=== PATIENT | female | born 1975 | race Caucasian/White ===

== ENCOUNTER 2020-01-26 21:37 | Emergency (ER) | payer OTHER ==
[~2020-01-26] VITALS: Ht 170.2 cm; Wt 56.7 kg
--- NOTE | 2020-01-26 21:44 | NUR ---
Patient in room at this time
--- NOTE | 2020-01-26 21:53 | NUR ---
at bedside for assessment
[2020-01-26 22:35] LABS: BASOPHILS # (AUTO) 0.1 K/uL (0.0-8.0); BASOPHILS % (AUTO) 0.9 % (0.0-2.0); EOSINOPHILS # (AUTO) 0.3 K/uL (0.0-0.7); EOSINOPHILS % (AUTO) 4.9 % (0.0-7.0); HEMATOCRIT 38.1 % (31.2-41.9); LYMPHOCYTES # (AUTO) 2.6 K/uL (20.0-40.0); LYMPHOCYTES % (AUTO) 40.6 % (20.5-51.5); MEAN CORPUSCULAR HEMOGLOBIN 31.9 uug (24.7-32.8); MEAN CORPUSCULAR HGB CONC 34 g/dL (32.3-35.6); MEAN CORPUSCULAR VOLUME 93.5 fL (75.5-95.3); MONOCYTES # (AUTO) 0.5 K/uL (2.0-10.0); MONOCYTES % (AUTO) 7.6 % (0.0-11.0); PLATELET COUNT (AUTO) 345 K/uL (179-408); RED BLOOD CELL COUNT(AUTO) 4.07 MIL/uL (3.63-4.92); WHITE BLOOD COUNT (AUTO) 6.5 K/uL (3.8-11.8)
[2020-01-26 22:38] LABS: *BILIRUBIN,URIN NEGATIVE (NEGATIVE); *BLOOD, URINE NEGATIVE (NEGATIVE); *CLARITY,URINE CLEAR (CLEAR); *COLOR,URINE YELLOW (YELLOW); *KETONES,URINE NEGATIVE (NEGATIVE); *UROBILINOGEN,URINE 0.2 E.U./dl (NORMAL); LEUKOCYTE ESTERASE ,URINE NEGATIVE (NEGATIVE); NITRITE, URINE NEGATIVE (NEGATIVE); UGLUCOSE NEGATIVE (NEGATIVE)
--- NOTE | 2020-01-26 22:40 | NUR ---
patient taken to Radiology at this time
[2020-01-26 22:46] LABS: *URINE HCG, QUAL NEGATIVE (NEGATIVE)
[2020-01-26 23:05] LABS: POTASSIUM 4.1 mmol/L (3.5-5.1)
[2020-01-26 23:10] LABS: BILIRUBIN,DIRECT 0.2 mg/dL (0.0-0.2); BILIRUBIN,TOTAL 1.1 mg/dL (0.2-1.0); TOTAL PROTEIN, SERUM 7.2 g/dL (6.4-8.2)
--- NOTE | 2020-01-26 23:28 | NUR ---
Patient discharged to home in stable condition. Took all belongings. no signs of acute distress. Written and verbal after care instructions given. Patient verbalizes understanding of instructions. Stressed follow up or return to ER for worsening s/s.
[2020-01-26 23:31] VITALS: BP 129/98
== END 2020-01-26 23:28 | disposition home or self-care (01) ==
LOC: ER 21:39
DX: R10.32 Left lower quadrant pain (principal); R51.9 Headache, unspecified; Z88.6 Allergy status to analgesic agent; Z88.0 Allergy status to penicillin; F41.0 Panic disorder [episodic paroxysmal anxiety]; M79.7 Fibromyalgia; J45.909 Unspecified asthma, uncomplicated
CPT/HCPCS: 36415; 70030-TC; 70450; 71045; 84443; 84703; 85025; 93005; A4663

== ENCOUNTER 2020-03-07 04:43 | Emergency (ER) | payer OTHER ==
[~2020-03-07] VITALS: Ht 170.2 cm; Wt 54.4 kg
[2020-03-07] MEDS ORDERED: [UNRECOGNIZED DRUG - REMARK] (04:58)
[2020-03-07] MEDS ORDERED: CLON2TAB11 PO (04:58)
[2020-03-07] MEDS ORDERED: ALBU18HF2 IH (04:58)
[2020-03-07] MEDS ORDERED: [UNRECOGNIZED DRUG - REMARK] (04:58)
[2020-03-07] MEDS ORDERED: PANTOPRAZOLE SODIUM 40 MG VIAL IV ONE (05:15)
[2020-03-07] MEDS ORDERED: OXYCODONE/APAP 5-325 MG TABLET PO ONE (05:15)
[2020-03-07 05:25] LABS: BASOPHILS # (AUTO) 0.1 K/uL (0.0-8.0); BASOPHILS % (AUTO) 1.3 % (0.0-2.0); EOSINOPHILS # (AUTO) 0.3 K/uL (0.0-0.7); EOSINOPHILS % (AUTO) 7.3 % (0.0-7.0); HEMATOCRIT 34.8 % (31.2-41.9); HEMOGLOBIN 11.7 g/dL (10.9-14.3); LYMPHOCYTES # (AUTO) 2.3 K/uL (20.0-40.0); LYMPHOCYTES % (AUTO) 56.7 % (20.5-51.5); MEAN CORPUSCULAR HEMOGLOBIN 31.1 uug (24.7-32.8); MEAN CORPUSCULAR HGB CONC 34 g/dL (32.3-35.6); MEAN CORPUSCULAR VOLUME 92.6 fL (75.5-95.3); MONOCYTES # (AUTO) 0.3 K/uL (2.0-10.0); MONOCYTES % (AUTO) 8.3 % (0.0-11.0); NEUTROPHILS # (AUTO) 1.1 K/uL (1.8-8.9); NEUTROPHILS % (AUTO) 26.4 % (38.5-71.5); PLATELET COUNT (AUTO) 243 K/uL (179-408); RED BLOOD CELL COUNT(AUTO) 3.76 MIL/uL (3.63-4.92); WHITE BLOOD COUNT (AUTO) 4.1 K/uL (3.8-11.8)
[2020-03-07 05:36] LABS: ALANINE AMINOTRANSFERASE 20 U/L (14-59); ALKALINE PHOSPHATASE 32 U/L (50-136); ASPARTATE AMINOTRANSFERASE 9 U/L (15-37); BILIRUBIN,DIRECT 0.3 mg/dL (0.0-0.2); CARBON DIOXIDE 31 mmol/L (21-32); CHLORIDE 100 mmol/L (98-107); GLUCOSE 101 mg/dL (74-106); POTASSIUM 3.9 mmol/L (3.5-5.1); TOTAL PROTEIN, SERUM 6.6 g/dL (6.4-8.2); UREA NITROGEN, BLOOD 7 mg/dL (7-18)
[2020-03-07] MEDS ORDERED: PANTOPRAZOLE SODIUM 40 MG VIAL ONE (05:36)
[2020-03-07] MEDS ORDERED: OXYCODONE/APAP 5-325 MG TABLET ONE (05:42)
--- NOTE | 2020-03-07 07:29 | NUR ---
Terminal Computer Operator assumes care. Hands off report received from Dr Morris. This patient is for repeat BMP@around 8 o'clock and for discharge after. Patient is resting comfortably on gurney with eyes closed. No vomiting seen since admission to ER or nausea expressed by patient. PATIENT IS PAIN FREE AT THIS TIME.
[2020-03-07 08:21] LABS: CREATININE 0.9 mg/dL (0.6-1.3); POTASSIUM 4.3 mmol/L (3.5-5.1)
--- NOTE | 2020-03-07 08:47 | NUR ---
IV removed. Catheter intact and site benign. Pressure and 4x4 gauze applied to site. No bleeding noted. Patient discharged to home in stable condition with brisk steady gait. Written and verbal after care instructions given. Patient verbalizes understanding & compliance of instructions. Stressed follow up with primary doctor/ valver or return to ER for worsening s/s.
== END 2020-03-07 08:48 | disposition home or self-care (01) ==
LOC: ER 04:47
DX: R10.9 Unspecified abdominal pain (principal); Z82.49 Family history of ischemic heart disease and other diseases of the circulatory system; Z88.6 Allergy status to analgesic agent; Z88.5 Allergy status to narcotic agent; Z88.0 Allergy status to penicillin; M79.7 Fibromyalgia; J45.909 Unspecified asthma, uncomplicated; F41.0 Panic disorder [episodic paroxysmal anxiety]
CPT/HCPCS: 36415; 80048 ×2; 80076; 84702; 85025; 96374; 99284; C9113; A4663

== ENCOUNTER 2020-09-16 01:54 | Emergency (ER) | payer OTHER ==
[~2020-09-16] VITALS: Ht 170.2 cm; Wt 59.0 kg
[~2020-09-16 01:54] MED LIST: ALBU18HF2 IH; CLON2TAB11 PO; [UNRECOGNIZED DRUG - REMARK]; [UNRECOGNIZED DRUG - REMARK]
[2020-09-16] MEDS ORDERED: OXYCODONE/APAP 5-325 MG TABLET PO ONE (02:00)
--- NOTE | 2020-09-16 02:02 | NUR ---
Pt BIB [facility] from home for c/o left foot pain PL:10/28. No SOB or labored breathing. Afebrile. A/O x4.
--- NOTE | 2020-09-16 02:03 | NUR ---
Dr. Florian at bedside, MSE in progress.
--- NOTE | 2020-09-16 02:16 | NUR ---
Xray at bedside.
[2020-09-16] MEDS ORDERED: OXYCODONE/APAP 5-325 MG TABLET ONE (02:17)
[2020-09-16] MEDS ORDERED: OXYC-128 PO (03:02)
[2020-09-16] MEDS ORDERED: KETOROLAC TROMETHAMINE 60 MG INJ IM ONE ×2 (03:58→04:00)
--- NOTE | 2020-09-16 04:40 | NUR ---
Patient discharged to home in stable condition. A/O x4, no SOB or labored breathing. Educated pt on crutches. Written and verbal after care instructions given. Patient verbalizes understanding of instructions. Stressed follow up or return to ER for worsening s/s. Picked up by boyfriend.
[2020-09-16 04:55] VITALS: BP 102/77
== END 2020-09-16 04:45 | disposition home or self-care (01) ==
LOC: ER 01:56
DX: S92.512A Displaced fracture of proximal phalanx of left lesser toe(s), initial encounter for closed fracture (principal); W01.0XXA Fall on same level from slipping, tripping and stumbling without subsequent striking against object, initial encounter; Y92.039 Unspecified place in apartment as the place of occurrence of the external cause; J45.909 Unspecified asthma, uncomplicated; I10 Essential (primary) hypertension; Z98.82 Breast implant status; M79.7 Fibromyalgia; F41.9 Anxiety disorder, unspecified; Z88.5 Allergy status to narcotic agent; Z88.0 Allergy status to penicillin
CPT/HCPCS: 73630; 96372; 99283; J1885; A4663

== ENCOUNTER 2020-11-03 08:26 | Emergency (ER) | payer OTHER ==
[~2020-11-03] VITALS: Ht 170.2 cm; Wt 54.4 kg
[~2020-11-03 08:26] MED LIST changes: +OXYC-128 PO
[2020-11-03] MEDS ORDERED: diphenhydrAMINE 50 MG/1 ML VIAL IV ONE ×2 (08:45→09:00)
[2020-11-03] MEDS ORDERED: KETOROLAC TROMETHAMINE 30 MG INJ IVP ONE (08:45)
[2020-11-03] MEDS ORDERED: METOCLOPRAMIDE HCL 10 MG/2 ML VIAL IV ONE (08:45)
[2020-11-03] MEDS ORDERED: IV NS 1000 ML 1,000 ML IV ONE (08:45)
[2020-11-03] MEDS ORDERED: METOCLOPRAMIDE HCL 10 MG/2 ML VIAL ONE ×2 (09:05→09:10)
[2020-11-03] MEDS ORDERED: KETOROLAC TROMETHAMINE 30 MG INJ ONE ×2 (09:05→09:10)
[2020-11-03] MEDS ORDERED: diphenhydrAMINE 50 MG/1 ML VIAL ONE ×2 (09:05→09:10)
[2020-11-03 09:22] LABS: HEMATOCRIT 38.2 % (31.2-41.9); MEAN CORPUSCULAR HEMOGLOBIN 32.6 uug (24.7-32.8); MEAN CORPUSCULAR VOLUME 95.3 fL (75.5-95.3); PLATELET COUNT (AUTO) 345 K/uL (179-408)
[2020-11-03 09:26] LABS: BILIRUBIN,DIRECT 0.2 mg/dL (0.0-0.2); BILIRUBIN,TOTAL 0.9 mg/dL (0.2-1.0); CREATININE 0.9 mg/dL (0.6-1.3); POTASSIUM 3.7 mmol/L (3.5-5.1); TOTAL PROTEIN, SERUM 7.3 g/dL (6.4-8.2)
[2020-11-03 11:02] VITALS: BP 128/75
--- NOTE | 2020-11-03 11:02 | NUR ---
Patient discharged to home in stable condition. Written and verbal after care instructions given. Patient verbalizes understanding of instructions. Stressed follow up or return to ER for worsening s/s.
--- NOTE | 2020-11-03 11:02 | NUR ---
IV removed. Catheter intact and site benign. Pressure and 4x4 gauze applied to site. No bleeding noted.
== END 2020-11-03 11:23 | disposition home or self-care (01) ==
LOC: ER 08:27
DX: R51.9 Headache, unspecified (principal); M79.7 Fibromyalgia; J45.909 Unspecified asthma, uncomplicated; F41.9 Anxiety disorder, unspecified; Z82.0 Family history of epilepsy and other diseases of the nervous system; Z98.82 Breast implant status; Z86.69 Personal history of other diseases of the nervous system and sense organs; R11.10 Vomiting, unspecified
CPT/HCPCS: 36415; 80048; 80076; 84702; 85025; 96361; 96374; 96375; 99284; J1885; J2765; A4663; J1200; J7030

== ENCOUNTER 2021-01-26 10:10 | Emergency (ER) | payer OTHER ==
[~2021-01-26] VITALS: Ht 170.2 cm; Wt 54.4 kg
[2021-01-26] MEDS ORDERED: METO-295 PO (10:36)
[2021-01-26] MEDS ORDERED: IBUPROFEN 600 MG TABLET PO ONE (10:45)
[2021-01-26] MEDS ORDERED: METOCLOPRAMIDE HCL 10 MG TABLET PO ONE (10:45)
[2021-01-26] MEDS ORDERED: METOCLOPRAMIDE HCL 10 MG TABLET ONE (10:49)
[2021-01-26] MEDS ORDERED: IBUPROFEN 600 MG TABLET ONE (10:50)
[2021-01-26 11:01] LABS: *URINE HCG, QUAL NEG (NEGATIVE)
--- NOTE | 2021-01-26 11:16 | NUR ---
Patient discharged to home in stable condition. Written and verbal after care instructions given. Patient verbalizes understanding of instructions. Stressed follow up or return to ER for worsening s/s.PT WALKS IN STEADY GAIT.
[2021-01-26 11:17] VITALS: BP 111/65
== END 2021-01-26 11:19 | disposition home or self-care (01) ==
LOC: ER 10:10
DX: G43.909 Migraine, unspecified, not intractable, without status migrainosus (principal); F41.9 Anxiety disorder, unspecified; G47.00 Insomnia, unspecified; M79.7 Fibromyalgia; J45.909 Unspecified asthma, uncomplicated; Z88.6 Allergy status to analgesic agent; Z88.0 Allergy status to penicillin
CPT/HCPCS: 84703; A4663; J8597